=== PATIENT | male | born 1965 | race Caucasian/White ===

== ENCOUNTER → 2020-06-21 11:15 | Outpatient (CLI) | payer OTHER, MEDICAID, SELFPAY ==
--- NOTE | 2020-06-21 11:19 | DI.RAD.S_ITS ---
PROCEDURE: XR LUMBAR SPINE MIN 4V INDICATIONS: BACK PAIN TECHNIQUE: 5 views of the lumbar spine were acquired, including bilateral oblique views. COMPARISON: None. FINDINGS: Bones: 5 nonrib-bearing vertebrae are present. There is normal bony alignment. No vertebral body compression fractures. Degenerative endplate changes and mild bilateral facet arthrosis at L3-4 through L5-S1 levels are seen. No suspicious bony lesions. Soft tissues: Overlying bowel gas pattern is normal. No suspicious soft tissue calcifications. Oblique images: No pars defects. No significant bony foraminal stenosis. IMPRESSION: Mild degenerative disc disease in mid to lower lumbar spine. No compression fracture or spondylolisthesis. No gross pars defect or significant bony foraminal stenosis. Dictated by: Mateo Middleton M.D. on 06/21/2020 at 12:34 Approved by: Mateo Middleton M.D. on 06/21/2020 at 12:34
== END ==
PROVIDERS: PCP Family Medicine; Referring Provider Physical Medicine & Rehabilitation; Visit Provider Physical Medicine & Rehabilitation
DX: M54.9 Dorsalgia, unspecified (principal); M51.36 Other intervertebral disc degeneration, lumbar region; M51.37 Other intervertebral disc degeneration, lumbosacral region; M96.1 Postlaminectomy syndrome, not elsewhere classified; M54.16 Radiculopathy, lumbar region; M75.42 Impingement syndrome of left shoulder; M67.911 Unspecified disorder of synovium and tendon, right shoulder; M16.0 Bilateral primary osteoarthritis of hip
CPT/HCPCS: 72110; 99214

== ENCOUNTER → 2020-08-16 15:22 | Outpatient (CLI) | payer OTHER, MEDICAID, SELFPAY ==
[2020-08-16 17:46] LABS: COVID19 -Nasal RAPID Negative (Negative)
== END ==
PROVIDERS: PCP Internal Medicine; Visit Provider Student in an Organized Health Care Education/Training Program
DX: Z01.812 Encounter for preprocedural laboratory examination (principal); Z20.822 Contact with and (suspected) exposure to COVID-19
CPT/HCPCS: 87635

== ENCOUNTER 2020-08-17 08:02 | Outpatient (CLI) | payer OTHER, MEDICAID, SELFPAY ==
--- NOTE | 2020-08-17 08:04 | DI.RAD.S_ITS ---
PROCEDURE: PAIN L/S TRANSFORAMINAL INJECT INDICATIONS: SPONDYLOSIS COMPARISON: None. FINDINGS: Fluoroscopic spot filming was performed to verify placement of spinal needles at the right L4-5 neural foramen area level(s), as labeled on the films. Appropriate location(s) of the needle tip(s) was confirmed by injection of iodinated contrast. IMPRESSION: Normal needle tip positioning for right L4-5 injection. Dictated by: Caleb Allen M.D. on 08/17/2020 at 9:42 Approved by: Caleb Allen M.D. on 08/17/2020 at 9:43
[2020-08-17 08:45] VITALS: BP 146/85; PULSE 85; RESP 18; TEMP 36.5; O2SAT 99
[2020-08-17 09:10] VITALS: BP 158/74; PULSE 82; RESP 18; O2SAT 100
[2020-08-17] MEDS: BUPIVACAINE 0.25% (PF) VIAL 2 ML INJ (09:14)
[2020-08-17] MEDS: DEXAMETHASONE 10 MG/ML VIAL 20 MG INJ (09:14)
[2020-08-17 09:15] VITALS: BP 154/73; PULSE 86; RESP 22; O2SAT 100
[2020-08-17] MEDS: IOPAMIDOL 15 ML VIAL 3 ML INJ (09:15)
[2020-08-17] MEDS: BETAMETHASONE 30 MG/5 ML MDV 6 MG INJ (09:15)
[2020-08-17 09:20] VITALS: BP 155/81; PULSE 91; RESP 17; O2SAT 100
[2020-08-17 09:25] VITALS: BP 152/84; PULSE 78; RESP 17; O2SAT 97
--- NOTE | 2020-08-17 09:25 | P.PCN_ITS ---
Date/Time/Diagnoses Date of procedure: 08/17/20 Time of procedure: 09:25 Pre-procedure diagnosis: 1. FORAMINAL STENOSIS WITH LE SYMPTOMS Post-procedure diagnosis: same Procedure Notes Procedure: 1. FLUOROSCOPICALLY GUIDED CONTRAST CONTROLLED TRANSFORAMINAL EPIDURAL STEROID INJECTION - RIGHT L4/5 TFESI Indications: Odell is referred by Dr. Savage for treatment of Foraminal Stenosis with Right LE Symptoms Physician: Kraig Mcduffie Total Fluoroscopy time (seconds): 11 Total sedation minutes: 0 Complications: none Procedure in detail & Post-procedure care: FINDINGS Foraminal Nerve Root Compression secondary to disc disease and facet hypertrophy DESCRIPTION OF PROCEDURE Following review of allergy and review of potential side effects and complications, including, but not necessarily limited to, infection, allergic reaction, local tissue breakdown, stroke, temporary or permanent nerve injury, paralysis, and possible , the patient indicated that the patient understood and agreed to proceed. An informed consent document was signed by the patient, witnessed by a nurse, and placed in the patient's chart. Additionally, other treatment options including medications, modalities, and physical therapy were reviewed with the patient. After review of previous anaesthesic history and IV conscious sedation the patient was deemed safe to proceed with today?s procedure with IV conscious sedation as ASA class II designation. Safety time-out was performed to confirm patient ID, procedure to be performed and site of procedure. IV sedation was deemed unnecessary and thus not administered by the RN after DO order, titrated to patient comfort during the course of the procedure while the patient remained responsive to all verbal commands In the prone position following sterile prep and drape of the lumbar region, the right L4/5 posterior neuroforamen was identified fluoroscopically. The skin was anesthetized via a 25-gauge 1.5-inch needle with 1% lidocaine solution. At this point, a 25-gauge 3.5-inch spinal needle was atraumatically introduced and advanced under fluoroscopic guidance through the posterior right L4/5 neuroforamen to approximately the anterior aspect of the canal. Depth was confirmed on lateral view. Following negative aspiration, injection of approximately 1.5cc of Isovue 200 under live fluoroscopy in the AP view confirmed excellent flow along the nerve root, into the epidural space without vascular or intrathecal uptake observed Radiological data, including multiple fluoroscopic views of the lumbosacral spine, reveal a spinal needle at the right L4/5 posterior neuroforamen. Subsequent views show flow of contrast material flowing superiorly and inferiorly along the nerve root confirming epidural flow. Subsequently, a test dose of 1.5 cc of 1% lidocaine solution was administered and patient was observed for two minutes for signs or symptoms of complications, including abdominal pain, shortness of breath, bilateral upper or lower extremity weakness, nausea and vomiting, prior to steroid injection. At this point, a total of 3cc or 20mg of dexamethasone and 6mg of betamethasone was injected without incident. The procedure tolerated the procedure well without signs or symptoms of complications prior to transfer to the recovery area continued monitoring without incident. The patient was then transferred to the recovery area where they were observed for an appropriate time after the injection. The patient reported a VAS score of 7 prior to the procedure and a post- procedure VAS of 0. POST OP INSTRUCTIONS The patient was provided a Pain Log to continue to record their response to the target-specific procedure prior to follow-up visit with their referring physician. Additionally, specific post-injection care instructions and a contact number to our office were provided if concerns arise regarding possible complications associated with the procedure are suspected.
== END 2020-08-17 09:35 | disposition home or self-care (01) ==
LOC: RAD 08:03
PROVIDERS: PCP Internal Medicine; Referring Provider Internal Medicine; Visit Provider Physical Medicine & Rehabilitation
DX: M48.061 Spinal stenosis, lumbar region without neurogenic claudication (principal); M51.16 Intervertebral disc disorders with radiculopathy, lumbar region
CPT/HCPCS: 64483; J0702; J1100; J2250; J3010

== ENCOUNTER → 2020-12-06 08:09 | Outpatient (CLI) | payer OTHER, MEDICAID, SELFPAY ==
[2020-12-06 14:28] LABS: COVID19 -Nasal RAPID Negative (Negative)
== END ==
PROVIDERS: PCP Internal Medicine; Visit Provider Physical Medicine & Rehabilitation
DX: Z20.822 Contact with and (suspected) exposure to COVID-19 (principal)
CPT/HCPCS: 87635; C9803

== ENCOUNTER 2020-12-07 08:59 | Outpatient (CLI) | payer OTHER, MEDICAID, SELFPAY ==
--- NOTE | 2020-12-07 09:04 | DI.RAD.S_ITS ---
PROCEDURE: PAIN C/T INTERLAMINAR INJECT INDICATIONS: SPINAL STENOSIS COMPARISON: None. FINDINGS: Fluoroscopic spot filming was performed to verify placement of spinal needles at the C6-C7 interlaminar space level(s), as labeled on the films. Appropriate location(s) of the needle tip(s) was confirmed by injection of iodinated contrast. IMPRESSION: Access needle between the C6 and C7 lamina. Dictated by: Inidgo Nelson MD, PhD on 12/07/2020 at 11:51 Approved by: Indigo Nelson MD, PhD on 12/07/2020 at 11:52
[2020-12-07 09:20] VITALS: BP 168/96; PULSE 69; RESP 17; TEMP 36.4; O2SAT 100
[2020-12-07 09:55] VITALS: BP 191/107; PULSE 71; RESP 18; O2SAT 98
[2020-12-07] MEDS: IOPAMIDOL 15 ML VIAL 3 ML INJ (09:57)
[2020-12-07] MEDS: BUPIVACAINE 0.25% (PF) VIAL 2 ML INJ (09:57)
[2020-12-07] MEDS: DEXAMETHASONE 10 MG/ML VIAL 30 MG INJ (09:58)
[2020-12-07 10:00] VITALS: BP 191/105; PULSE 72; RESP 19; O2SAT 98
[2020-12-07 10:05] VITALS: BP 185/99; PULSE 75; RESP 20; O2SAT 97
--- NOTE | 2020-12-07 10:12 | PM.PROC.IR.1 ---
Date/Time/Diagnoses Date of procedure: 12/07/20 Time of procedure: 10:12 Pre-procedure diagnosis: 1. CERVICAL STENOSIS, 2. CERVICAL HNP WITH UPPER EXTREMITY RADICULAR FEATURES Post-procedure diagnosis: same Procedure Notes Procedure: 1. FLUORSCOPICALLY GUIDED CONTRAST CONTROLLED INTERLAMINAR EPIDURAL STEROID INJECTION - C6/7 TL JENNIFER Indications: Odell is referred by Dr. Savage for treatment of Cervical HNP with Upper Extremity Paresthesias. Physician: Kraig Mcduffie Total Fluoroscopy time (seconds): 34 Total sedation minutes: 0 Complications: none Procedure in detail & Post-procedure care: FINDINGS Cervical Stenosis due to disc deterioration and nerve root irritation and nerve root irritation DESCRIPTION OF PROCEDURE Fluoroscopically guided, contrast-controlled C6/7 translaminar epidural steroid injection with conscious sedation. Following review of allergy and review of potential side effects and complications, including, but not necessarily limited to, infection, allergic reaction, local tissue breakdown, temporary as well as permanent nerve injury, stroke, paralysis, and possible , the patient indicated that patient understood and agreed to proceed. An informed consent document was signed by the patient, witnessed by a nurse, and placed in the patient's chart. Additionally, other treatment options including modalities, medications, and physical therapy were reviewed with the patient. After review of previous anaesthesic history and IV conscious sedation the patient was deemed safe to proceed with today?s procedure with IV conscious sedation as ASA class II designation. Safety time-out was performed to confirm patient ID, procedure to be performed and site of procedure. IV sedation was deemed unnecessary and thus not administered by the RN after DO order, titrated to patient comfort during the course of the procedure while the patient remained responsive to all verbal commands. In the prone position, following sterile prep and drape of the cervical region, the C6/7 translaminar space was identified fluoroscopically. The skin was anesthetized via a 25-gauge 1.5-inch needle with 1% lidocaine solution. At this point, a 25-gauge, 2.5-inch short bevel spinal needle was atraumatically introduced and advanced under fluoroscopic guidance into epidural space at the C6/7 translaminar space. Depth was confirmed on lateral view. Radiological data, including multiple fluoroscopic views of the cervical spine, reveal a spinal needle at the C6/7 translaminar space. Lateral views then show placement of the needle in the epidural space. Subsequent views show contrast material flowing superiorly and inferiorly in the epidural space. DSA fluoroscopy with live contrast injection, once again, confirmed no vascular or intrathecal uptake. At this point, using loss of resistance technique with saline and air, the epidural space was entered. Following negative aspiration, injection of approximately 1.5 cc of Isovue-200 with live fluoroscopy in the AP view confirmed epidural flow in the epidural space without vascular or intrathecal uptake observed. Subsequently, a test dose of 1 cc of 1% lidocaine solution was injected and patient was observed for two minutes without signs or symptoms of complications, including abdominal pain, shortness of breath, bilateral upper or lower extremity weakness, nausea and vomiting, prior to steroid injection. At this point, 3cc or 30mg of dexamethasone was then injected without incident. The patient tolerated the procedure well without signs or symptoms of complications prior to being transferred to the recovery area for further monitoring, The patient was then transferred to the recovery area where they were observed for an appropriate period of time after the injection. The patient reported a VAS score of 6 prior to the procedure and a post-procedure VAS of 0. POST OP INSTRUCTIONS The patient was provided a Pain Log to continue to record their response to the target-specific procedure prior to follow-up visit with the referring provider. Additionally, specific post-injection care instructions and a contact number to our office were provided if concerns arise regarding possible complications associated with the procedure are suspected.
[2020-12-07 10:15] VITALS: BP 186/91; PULSE 70; RESP 18; O2SAT 98
[2020-12-07 10:22] VITALS: BP 164/85; PULSE 77; RESP 18; O2SAT 99
== END 2020-12-07 10:23 | disposition home or self-care (01) ==
LOC: RAD 09:02
PROVIDERS: PCP Internal Medicine; Referring Provider Internal Medicine; Visit Provider Physical Medicine & Rehabilitation
DX: M48.02 Spinal stenosis, cervical region (principal); M50.123 Cervical disc disorder at C6-C7 level with radiculopathy
CPT/HCPCS: 62321; J1100; J2250; J3010

== ENCOUNTER → 2023-02-05 14:27 | Outpatient (CLI) | payer OTHER, MEDICAID, SELFPAY ==
--- NOTE | 2023-02-05 14:28 | DI.RAD.S_ITS ---
PROCEDURE: XR LUMBAR SPINE MIN 4V INDICATIONS: BACK PAIN TECHNIQUE: 5 views of the lumbar spine were acquired, including bilateral oblique views. COMPARISON: [facility], , XR LUMBAR SPINE MIN 4V, 06/21/2020, 11:19. FINDINGS: Bones: 5 nonrib-bearing vertebrae are present. There is normal bony alignment. There is multilevel facet arthropathy, worse at L4-5 and L5-S1. Mild multilevel disc height loss with degenerative endplate changes and spurring is present. No vertebral body compression fractures. No suspicious bony lesions. Soft tissues: Overlying bowel gas pattern is normal. No suspicious soft tissue calcifications. Oblique images: No pars defects. IMPRESSION: Mild multilevel degenerative changes of the lumbar spine. Dictated by: Lei Villanueva M.D. on 02/05/2023 at 15:11 Approved by: Lei Villanueva M.D. on 02/05/2023 at 15:12
--- NOTE | 2023-02-05 14:28 | DI.RAD.S_ITS ---
PROCEDURE: XR CERVICAL SPINE 4V OR 5V INDICATIONS: NECK PAIN TECHNIQUE: 6 views of the cervical spine acquired. COMPARISON: None. FINDINGS: Bones: No fractures or dislocations to the C6 level. There are multilevel degenerative changes of the cervical spine with facet and uncovertebral arthropathy, disc height loss with degenerative endplate changes and spurring. Oblique images demonstrate mild bony foraminal stenoses. Soft tissues: No prevertebral soft tissue swelling. IMPRESSION: Multilevel degenerative changes of the cervical spine. Dictated by: Lei Villanueva M.D. on 02/05/2023 at 15:09 Approved by: Lei Villanueva M.D. on 02/05/2023 at 15:10
== END ==
PROVIDERS: PCP Internal Medicine; Referring Provider Physical Medicine & Rehabilitation; Visit Provider Physical Medicine & Rehabilitation
DX: M47.22 Other spondylosis with radiculopathy, cervical region (principal); M47.26 Other spondylosis with radiculopathy, lumbar region; M47.27 Other spondylosis with radiculopathy, lumbosacral region; M96.1 Postlaminectomy syndrome, not elsewhere classified; M75.52 Bursitis of left shoulder; K22.70 Barrett's esophagus without dysplasia; Z72.0 Tobacco use
CPT/HCPCS: 72050; 72110; 99215

== ENCOUNTER 2023-03-06 09:05 | Outpatient (CLI) | payer OTHER, MEDICAID, SELFPAY ==
--- NOTE | 2023-03-06 | DI.RAD.S_ITS ---
PROCEDURE: PAIN L/S TRANSFORAM INJECT POLO COMPARISON: [facility], CR, XR LUMBAR SPINE MIN 4V, 02/05/2023, 14:30. INDICATIONS: Lumbar radiculopathy Postlaminectomy syndrome of l FINDINGS: Fluoroscopic spot filming was performed to verify placement of spinal needles on both sides at the L4-L5 level, as labeled on the films. Appropriate location of the needle tips was confirmed by injection of iodinated contrast. IMPRESSION: Intraprocedural examination demonstrating appropriate positions of the needles. Dictated by: Jordi Ibarra M.D. on 03/06/2023 at 13:50 Approved by: Jordi Ibarra M.D. on 03/06/2023 at 13:51
[2023-03-06 10:20] VITALS: BP 150/87; PULSE 80; RESP 18; TEMP 36.4; O2SAT 99
--- NOTE | 2023-03-06 10:26 | PC.NURSE ---
Patient declines sedation and IV to be placed. Patient reports that he has a sinus infection and that he has been taking Doxyxycline x5 days and has 3 days left. He also took steroids. Reports that he is feeling better. Denies fever, chills and night sweats. made aware
[2023-03-06 10:50] VITALS: BP 177/108; PULSE 74; RESP 19; O2SAT 100
[2023-03-06] MEDS: BETAMETHASONE 30 MG/5 ML MDV 12 MG INJ (10:51)
[2023-03-06] MEDS: BUPIVACAINE 0.25% (PF) VIAL 2 ML INJ (10:51)
[2023-03-06] MEDS: DEXAMETHASONE 10 MG/ML VIAL 20 MG INJ (10:51)
[2023-03-06] MEDS: iopamidoL 15 ML VIAL 3 ML INJ (10:51)
[2023-03-06 10:55] VITALS: BP 168/100; PULSE 77; RESP 15; O2SAT 100
[2023-03-06 11:00] VITALS: BP 176/105; PULSE 81; RESP 20; O2SAT 99
[2023-03-06 11:05] VITALS: BP 167/98; PULSE 83; RESP 16; O2SAT 99
--- NOTE | 2023-03-06 11:05 | PM.PROC.IR.1 ---
Date/Time/Diagnoses Date of procedure: 03/06/23 Time of procedure: 11:06 Pre-procedure diagnosis: 1. FORAMINAL STENOSIS WITH LE SYMPTOMS Procedure Notes Procedure: 1. FLUOROSCOPICALLY GUIDED CONTRAST CONTROLLED TRANSFORAMINAL EPIDURAL STEROID INJECTION - BILATERAL L4/5 TFESI Indications: Odell is referred by Dr. Savage for treatment of Foraminal Stenosis with bilateral LE Symptoms Physician: Kraig Mcduffie Total Fluoroscopy time (seconds): 16 Total sedation minutes: 0 Complications: none Procedure in detail & Post-procedure care: FINDINGS Foraminal Nerve Root Compression secondary to disc disease and facet hypertrophy DESCRIPTION OF PROCEDURE Following review of allergy and review of potential side effects and complications, including, but not necessarily limited to, infection, allergic reaction, local tissue breakdown, stroke, temporary or permanent nerve injury, paralysis, and possible , the patient indicated that the patient understood and agreed to proceed. An informed consent document was signed by the patient, witnessed by a nurse, and placed in the patient's chart. Additionally, other treatment options including medications, modalities, and physical therapy were reviewed with the patient. After review of previous anaesthesic history and IV conscious sedation the patient was deemed safe to proceed with today?s procedure with IV conscious sedation as ASA class II designation. Safety time-out was performed to confirm patient ID, procedure to be performed and site of procedure. IV sedation was deemed unnecessary and thus not administered by the RN after DO order, titrated to patient comfort during the course of the procedure while the patient remained responsive to all verbal commands In the prone position following sterile prep and drape of the lumbar region, the right L4/5 posterior neuroforamen was identified fluoroscopically. The skin was anesthetized via a 25-gauge 1.5-inch needle with 1% lidocaine solution. At this point, a 25-gauge 3.5-inch spinal needle was atraumatically introduced and advanced under fluoroscopic guidance through the posterior right L4/5 neuroforamen to approximately the anterior aspect of the canal. Depth was confirmed on lateral view. Following negative aspiration, injection of approximately 1.5cc of Isovue 200 under live fluoroscopy in the AP view confirmed excellent flow along the nerve root, into the epidural space without vascular or intrathecal uptake observed Radiological data, including multiple fluoroscopic views of the lumbosacral spine, reveal a spinal needle at the right L4/5 posterior neuroforamen. Subsequent views show flow of contrast material flowing superiorly and inferiorly along the nerve root confirming epidural flow. Subsequently, a test dose of 1.5cc of 1% lidocaine solution was administered and patient was observed for two minutes for signs or symptoms of complications, including abdominal pain, shortness of breath, bilateral upper or lower extremity weakness, nausea and vomiting, prior to steroid injection. At this point, a total of 2cc or 10mg of dexamethasone and 6mg betamethasone was injected without incident. Attention was then refocused to the left L4/5 level where the identical procedure was replicated. The procedure tolerated the procedure well without signs or symptoms of complications prior to transfer to the recovery area continued monitoring without incident. The patient was then transferred to the recovery area where they were observed for an appropriate time after the injection. The patient reported a VAS score of 7 prior to the procedure and a post-procedure VAS of 0. POST OP INSTRUCTIONS The patient was provided a Pain Log to continue to record their response to the target-specific procedure prior to follow-up visit with their referring physician. Additionally, specific post-injection care instructions and a contact number to our office were provided if concerns arise regarding possible complications associated with the procedure are suspected.
== END 2023-03-06 11:20 | disposition home or self-care (01) ==
LOC: RAD 09:06
PROVIDERS: PCP Internal Medicine; Referring Provider Physical Medicine & Rehabilitation; Visit Provider Physical Medicine & Rehabilitation
DX: M48.061 Spinal stenosis, lumbar region without neurogenic claudication (principal); M51.16 Intervertebral disc disorders with radiculopathy, lumbar region; M47.26 Other spondylosis with radiculopathy, lumbar region
CPT/HCPCS: 64483; J0702; J1100; J3490